=== PATIENT | male | born 1950 | race Caucasian/White ===

== ENCOUNTER 2019-01-18 07:40 | Day surgery (SDC) | payer MEDICARE ==
[~2019-01-18 07:40] MED LIST: Midazolam 1 MG/ML 2 ML SDV ONE; Propofol 200 MG/20 ML SDV ONE; fentaNYL 100 MCG/2 ML SDV ONE
[2019-01-18] MEDS ORDERED: Sodium Chloride 0.9% 1,000 ML IV SCH (08:00)
[2019-01-18 10:29] VITALS: BP 128/69
--- NOTE | 2019-01-18 11:50 | OR ---
DATE OF PROCEDURE: 01/18/2019 SURGEON: Gregorio Davis MD PROCEDURE: Colonoscopy. FINDINGS: Descending colon polyp, approximately 8 mm, completely removed using snare. COMPLICATIONS: None. CUSTOMER SERVICE SUPERVISOR: None. ANESTHESIA: MAC. RISKS: Risks, benefits, alternatives, and limitations including, but not limited to infection, bleeding, and perforation were explained to the patient, who wished to proceed. PROCEDURE IN DETAIL: The patient was placed in left lateral decubitus position. Digital rectal exam was performed without abnormality. The scope was introduced and advanced atraumatically to the ileocecal valve. The scope was brought back through the ascending, transverse, descending colon and retroflexed. Few tics were noted. The aforementioned polyp was identified and completely removed using snare. No abnormalities on retroflexion. The patient tolerated the procedure well. Gregorio Davis MD /[id number]
== END 2019-01-18 10:49 | disposition home or self-care (01) ==
LOC: JP.SDS 07:40
PROVIDERS: ATTEND Surgery
DX: Z12.11 Encounter for screening for malignant neoplasm of colon (principal); K63.5 Polyp of colon; K63.89 Other specified diseases of intestine; I10 Essential (primary) hypertension; I48.91 Unspecified atrial fibrillation; E11.9 Type 2 diabetes mellitus without complications; E78.5 Hyperlipidemia, unspecified; Z86.73 Personal history of transient ischemic attack (TIA), and cerebral infarction without residual deficits
CPT/HCPCS: J2250; J2704; J3010; J7030

== ENCOUNTER 2019-07-15 08:56 | Day surgery (SDC) | payer MEDICARE ==
[~2019-07-15 08:56] MED LIST changes: +Bupivacaine 0.5%/EPINEPHrine 1:200,000 50 ML MDV ONE; +Dexamethasone 4 MG/ML SDV ONE; +Glycopyrrolate 0.2 MG/ML 5 ML MDV ONE; -Midazolam 1 MG/ML 2 ML SDV ONE; +Neostigmine Methylsulfate 1 MG/ML 5 ML Syringe ONE; +Ondansetron 4 MG/2 ML SDV ONE; +Rocuronium 50 MG/5 ML Vial ONE; +Succinylcholine 200 MG/10 ML MDV ONE; -fentaNYL 100 MCG/2 ML SDV ONE; +fentaNYL 250 MCG/5 ML SDV ONE
[2019-07-15] MEDS ORDERED: Sodium Chloride 0.9% 1,000 ML IV SCH (09:45)
[2019-07-15] MEDS: ceFAZolin 2 GM in Sodium Chloride 0.9% 50 ML IV ONE ×2 (10:10→11:36)
[2019-07-15 12:52] VITALS: PULSE 51
--- NOTE | 2019-07-15 13:16 | OR ---
DATE OF PROCEDURE: 07/15/2019 SURGEON: Gregorio Davis MD PROCEDURES: 1. Repair of incarcerated ventral hernia (33227). 2. Component separation with transverse abdominis release, left (97531). 3. Component separation, posterior fascia, right (44954). 4. Mesh prosthetic for open ventral hernia repair (19597). COMPLICATIONS: None. SENIOR TAX SPECIALIST: None. ANESTHESIA: General. PREOPERATIVE DIAGNOSIS: Ventral hernia. POSTOPERATIVE DIAGNOSIS: Ventral hernia. INDICATIONS: Pleasant 69-year-old male with a ventral hernia which was noted to be approximately 6 cm in size measured intraoperatively requiring hernia repair. The patient was given the options of laparoscopic hernia repair versus component separation surgery versus traditional onlay mesh. The patient was concerned about mesh adhesion to bowel, therefore this procedure was selected. We discussed risks, benefits, alternatives, and limitations including, but not limited to infection, bleeding, and injury to abdominal structures, along with chronic pain, and other risks not listed here. PROCEDURE IN DETAIL: The patient was placed in a supine position. A midline abdominal incision was made approximately 8 cm in size. This was carried down with electrocautery to the linea alba. The hernia was readily identified and measured to the aforementioned size. This was noted to be incarcerated with omentum. A piece of omentum would be transected later in the procedure and was inspected for bleeding which none was noted. Once the linea alba was opened, a potential plane in the posterior rectus sheath would be created. This was then carried out laterally to the semilunar line. The transversus plane would then also be entered on the left. This was performed with electrocautery. Epigastric artery, vein, and neurovascular bundles will be identified and preserved. Minimal bleeding was noted during this. The other side was then performed in same manner, same fashion, same technique, creating the muscular/fascial flap of the trunk. Once this was completed, the fascia closing the defect was then performed using interrupted #1 Vicryl sutures. These were performed in a fashion of placement and then suturing using tacks. There was no defect noted after this. A piece of polypropylene mesh was then inserted and was tacked in a few places to keep its orientation. The sac had been removed along with the omentum. The more superficial layers were then also closed with #1 Vicryl. Skin was closed with subcutaneous 3-0 Vicryl and 4-0 Vicryl, and Dermabond was applied. The patient tolerated the procedure well. Gregorio Davis MD /[id number]
[2019-07-15 13:48] VITALS: BP 115/81
== END 2019-07-15 14:15 | disposition home or self-care (01) ==
LOC: JP.SDS 08:56
PROVIDERS: ATTEND Surgery
DX: K43.6 Other and unspecified ventral hernia with obstruction, without gangrene (principal); E11.9 Type 2 diabetes mellitus without complications; G47.33 Obstructive sleep apnea (adult) (pediatric); Z99.89 Dependence on other enabling machines and devices
CPT/HCPCS: 15734; 49561; 49568; C1713; C1781; J0171; J0330; J0690; J1100; J2405; J2704; J2710; J2795; J3010; J3490; J7030; J7050

== ENCOUNTER 2019-09-01 08:34 | Day surgery (SDC) | payer MEDICARE ==
[~2019-09-01 08:34] MED LIST changes: +Bupivacaine 0.5% 50 ML MDV ONE; -Bupivacaine 0.5%/EPINEPHrine 1:200,000 50 ML MDV ONE; -Dexamethasone 4 MG/ML SDV ONE; -Glycopyrrolate 0.2 MG/ML 5 ML MDV ONE; +Lidocaine 1% with EPINEPHrine 1:100,000 50 ML MDV ONE; -Neostigmine Methylsulfate 1 MG/ML 5 ML Syringe ONE; -Ondansetron 4 MG/2 ML SDV ONE; -Propofol 200 MG/20 ML SDV ONE; -Rocuronium 50 MG/5 ML Vial ONE; -Succinylcholine 200 MG/10 ML MDV ONE; -fentaNYL 250 MCG/5 ML SDV ONE
[2019-09-01] MEDS ORDERED: fentaNYL 100 MCG/2 ML SDV ONE (08:52)
[2019-09-01] MEDS ORDERED: Propofol 200 MG/20 ML SDV ONE (08:52)
[2019-09-01] MEDS ORDERED: Midazolam 1 MG/ML 2 ML SDV ONE (08:53)
[2019-09-01] MEDS: Dextrose 5%-Lactated Ringers 1,000 ML IV SCH ×2 (09:24→10:32)
[2019-09-01] MEDS ORDERED: Meropenem 500 MG SDV ONE (09:40)
[2019-09-01] MEDS ORDERED: Linezolid 600 MG in Premix Bag 1 BAG IV ONE (10:30)
[2019-09-01] MEDS ORDERED: Mupirocin Oint 22 GM Tube ONE (10:36)
[2019-09-01] MEDS ORDERED: Mupirocin Oint 22 GM Tube TOP SCH (10:45)
[2019-09-01] MEDS ORDERED: Doxycycline 100 MG Cap PO ONE (11:15)
[2019-09-01 12:13] VITALS: BP 127/91; PULSE 60
--- NOTE | 2019-09-05 13:44 | OR ---
DATE OF PROCEDURE: 09/01/2019 SURGEON: Quan Gordon MD PREOPERATIVE DIAGNOSIS: Intraabdominal fluid collection. POSTOPERATIVE DIAGNOSIS: Inflammatory intraabdominal fluid collection versus abscess. PROCEDURE: Open drainage of the intraabdominal inflammatory fluid collection versus abscess (88124). ANESTHESIA: General. INDICATION FOR PROCEDURE: The patient is status post an incisional hernia repair per Dr. Davis on 07/15/2019, presents now with a fluid collection pushing the lower abdominal area at the site of incision anteriorly. Ultrasound was obtained yesterday which showed fluid behind the intraperitoneal mesh which may or may not be infected, but based on the presentation this late, would likely result from at least inflammatory response. Plan is to proceed with an attempted drainage of this area. The potential risks including bleeding, infection, injury to underlying viscera, possibility that a secondary procedure for removal of mesh might be required were all reviewed, and the patient wishes to proceed. DETAILS OF PROCEDURE: The patient was taken to the operating room and placed in a supine position. After IV sedation was administered, the abdomen was prepped and draped initially from the left side. The skin was anesthetized with 1% lidocaine mixed with Marcaine and a needle was then placed into the cavity and fluid was removed. This was serous-appearing fluid and cultures were sent. Stat Gram stain showed some WBCs indicating inflammatory state, but no obvious bacteria. Over the wire, an introducer was passed, but we were unable to pass this sufficiently to allow a drain passage. Attention was then taken to the right side where similar attempt was made to drain this percutaneously. This was likewise unsuccessful due to the inability to pass the introducer through the mesh. Given this, a small open incision was made on the left side of the area of the fluid. This allowed replacement of clamp into the area which was able to be passed through the mesh into the intraabdominal location. The clamp was then brought out through the right side where the original puncture site had been placed at that level and a 10-N[place]ian round Kole-Cfofey drain was pulled through that area and placed into the intraperitoneal location. Roughly 100 mL of the serous fluid was then evacuated by means of the drain which was sutured to skin with a 4-0 Vicryl stitch. The main incision was also closed at the skin level with 4-0 Vicryl stitch and a dressing applied. The patient was taken to the recovery room in satisfactory condition. Although, the patient did not have any bacteria on the Gram stain, we will cover him with Septra DS for the next 10 days. We will see the patient back next Thursday for a recheck. Wound care instructions and drainage management were reviewed with the patient and prior to discharge. Quan Gordon MD /[id number]
== END 2019-09-01 12:28 | disposition home or self-care (01) ==
LOC: JP.SDS 08:34
PROVIDERS: ATTEND Surgery
DX: K91.872 Postprocedural seroma of a digestive system organ or structure following a digestive system procedure (principal); I10 Essential (primary) hypertension; E11.9 Type 2 diabetes mellitus without complications; G47.33 Obstructive sleep apnea (adult) (pediatric); I48.91 Unspecified atrial fibrillation; Z87.891 Personal history of nicotine dependence
CPT/HCPCS: 36415; 49020; 80048; 85027; 87070; 87075; 87205; A9270; C1776; J2020; J2250; J2704; J3010; J3490; J7121; J2185